=== PATIENT | male | born 1955 | race Caucasian/White ===

== ENCOUNTER 2017-10-08 00:51 | Emergency (ER) | payer OTHER ==
[2017-10-08] MEDS: PROPARACAINE 0.5% OPHTH SOLUTION 15ML BOTTLE. OS ×2 (01:33)
[2017-10-08] MEDS: FLUORESCEIN OPHTH TEST STRIP. OS ×2 (01:33)
[2017-10-08] MEDS: DIPHTH,PERTUSS(ACELL),TET TOX 0.5 ML DISP.SYRIN. VAX IM ×2 (01:33)
[2017-10-08] MEDS: ERYTHROMYCIN 0.5% OPHTH OINTMENT 1GM TUBE. OS ×2 (01:59)
[2017-10-08] MEDS: IBUPROFEN 800 MG TABLET. PO ×2 (01:59)
[2017-10-08] MEDS: ACETAMINOPHEN 500 MG TABLET PO ×2 (02:00)
== END 2017-10-08 02:12 | disposition home or self-care (01) ==
LOC: ER 00:51
DX: S05.8X2A Other injuries of left eye and orbit, initial encounter (principal); Z23 Encounter for immunization; X58.XXXA Exposure to other specified factors, initial encounter; Y93.89 Activity, other specified; Y92.89 Other specified places as the place of occurrence of the external cause; Y99.8 Other external cause status
CPT/HCPCS: 90471; 90715; 99284